=== PATIENT | female | born 1975 | race Caucasian/White ===

== ENCOUNTER → 2016-11-17 | Outpatient (CLI) | payer OTHER ==
[2016-11-17 17:15] VITALS: BP 147/101; PULSE 103; RESP 16; TEMP 98; BMI 46.5
--- NOTE | 2016-12-22 00:37 | P.PN ---
Progress Note - Text DATE OF CONSULTATION: 11/17/2016 CHIEF COMPLAINT: Initial bariatric assessment. HISTORY OF PRESENT ILLNESS: Marlene Barnhart is a 41-year-old female who reports having lap band placed 7 years ago in 2009. She reports never feeling full from her band. She is eating more foods. Also, she reports moderate emesis and vomiting. She has been able to tolerate junk foods only. Her last adjustment was over 3 years ago. Her highest weight was 246 pounds. Her ideal body weight for her 5 foot, 1 inch frame is 131 pounds. She is 115 pounds overweight. Body mass is 46.6. At present she is on thyroid medications. She also reports moderate pain and discomfort from her port site. She also reports heartburn indigestion. Now she presents for further evaluation and management. PAST MEDICAL HISTORY: 1. Morbid obesity. 2. Gastroesophageal reflux disease. 3. Obstructive sleep apnea. 4. Migraines. 5. History of melanoma. 6. Anxiety. 7. Depression. PAST SURGICAL HISTORY: 1. section. 2. Skin biopsy. 3. Lap band placement. 4. Nasal surgery. 5. Sinus surgery. MEDICATIONS: 1. Synthroid. 2. Vitamin D. 3. Sudafed. 4. Omeprazole. 5. [place]. 6. Flonase nasal spray. ALLERGIES: 1. MOLD. 2. PENICILLIN. 3. COMPAZINE. SOCIAL HISTORY: Former tobacco user. Reports intermittent alcohol use. FAMILY HISTORY: Pertinent for DVTs. Also pertinent for morbid obesity. REVIEW OF SYSTEMS: CONSTITUTIONAL: [place] body weight of 131 pounds. Highest weight of 246 pounds. Body mass index of 46.5. HEENT: Denies any troubles with vision, hearing. Denies dysphagia. ENDOCRINE: History of thyroid disorder. No known history of diabetes type 2. GASTROINTESTINAL: Has severe gastroesophageal reflux disease. Denies any chronic diarrhea. RESPIRATORY: History of obstructive sleep apnea. No recent pneumonias. CARDIOVASCULAR: No reports of chest pain or heart attack. MUSCULOSKELETAL: Reports intermittent joint pain. NEUROLOGICAL: There are no reports of stroke or seizure disorder. PSYCH: History of depression. No recent suicidal ideation. HEMATOLOGIC: No reports of easy bruising or bleeding. Denies any DVTs. PHYSICAL EXAM: VITAL SIGNS: 98.0, 103, 16, 147/101, 5 feet 1 inch, 246 pounds. Body mass 46.5. GENERAL: Well-developed female in no acute distress. HEENT: No sclerae icterus. Extraocular movements grossly intact. Moist buccal mucosa. NECK: Supple without lymphadenopathy. CHEST: Nonlabored respirations. Equal bilateral excursions. CARDIOVASCULAR: Regular rate and rhythm. ABDOMEN: Obese, soft, nondistended. Mild tenderness over port site, the left upper quadrant. Pannus extends over pubis by over 4 to 5 cm. MUSCULOSKELETAL: No clubbing, cyanosis, or edema. No focal or lateralizing signs. CARDIOVASCULAR: Tachycardic. Pulses 2+ distally well perfused. LABS: Pending at this time. ASSESSMENT: 1. Morbid obesity due to excess calories. 2. Body mass index 46.5. 3. History of adjustable gastric band. 4. Complications from adjustable gastric band. 5. Intractable nausea and vomiting. 6. Hypothyroidism. 7. Anxiety. 8. Depression. 9. Obstructive sleep apnea. 10. Gastroesophageal reflux disease PLAN: 1. At minimum recommend upper endoscopy, as she reports gastroesophageal reflux disease including intractable nausea and vomiting which may be related for questionable band slippage. 2. As she has troubles with her band and will also potentially need evaluation with an upper GI barium study. 3. May also benefit from removal of band; however, this is pending completion of her upper endoscopy. 4. May also benefit from evaluation with bariatric dietitian regarding lap band diet. 5. Recommend bariatric metabolic panel. Thank you for this kind consultation.
== END | disposition home or self-care (01) ==
LOC: BARWHC3 15:42
PROVIDERS: ATTEND Surgery Plastic and Reconstructive Surgery
DX: Z01.818 Encounter for other preprocedural examination (principal); E66.01 Morbid (severe) obesity due to excess calories; E89.1 Postprocedural hypoinsulinemia; D50.8 Other iron deficiency anemias; Z68.39 Body mass index [BMI] 39.0-39.9, adult; G47.30 Sleep apnea, unspecified
CPT/HCPCS: 99211

== ENCOUNTER 2016-12-17 07:01 | Day surgery (SDC) | payer OTHER ==
[2016-12-13 14:44] VITALS: BMI 45.3
--- NOTE | 2016-12-17 01:12 | P.GSHP ---
History of Present Illness H&P Date: 12/17/16 CHIEF COMPLAINT: GERD HISTORY OF PRESENT ILLNESS: The patient is a 41-year-old female who presents reports gastroesophageal reflux disease. Upper endoscopy was offered for further evaluation and management. PAST MEDICAL HISTORY: Please see list. PAST SURGICAL HISTORY: Please see list. MEDICATIONS: Please see list. ALLERGIES: Please see list. SOCIAL HISTORY: No illicit drug use FAMILY HISTORY: No reports of Crohn disease or ulcerative colitis. REVIEW OF ORGAN SYSTEMS: CONSTITUTIONAL: No reports of fevers or chills. GI: Denies any blood in stools or constipation. PHYSICAL EXAM: VITAL SIGNS: Stable GENERAL: Well-developed and pleasant in no acute distress. HEENT: No scleral icterus. Extraocular movements grossly intact. Moist buccal mucosa. NECK: Supple without lymphadenopathy. CHEST: Unlabored respirations. Equal bilateral excursions. CARDIOVASCULAR: Regular rate and rhythm. Distal 2+ pulses. ABDOMEN: Soft, nondistended. MUSCULOSKELETAL: No clubbing, cyanosis, or edema. ASSESSMENT: 1. Gastroesophageal reflux disease PLAN: 1. Recommend proceeding with an upper endoscopy Past Medical History Past Medical History: Asthma, Cancer, GERD/Reflux, Sleep Apnea/CPAP/BIPAP, Thyroid Disorder Additional Past Medical History / Comment(s): MIGRAINE HEADACHES, MELENOMA, hiatal hernia, hx ezcema, History of Any Multi-Drug Resistant Organisms: None Reported Past Surgical History: Bariatric Surgery, Section Additional Past Surgical History / Comment(s): LAP BAND, NASAL / SINUS SURGERY, Past Anesthesia/Blood Transfusion Reactions: Motion Sickness Past Psychological History: Anxiety, Depression Smoking Status: Former smoker Past Alcohol Use History: Rare Additional Past Alcohol Use History / Comment(s): QUIT SMOKING 2001 ,STARTED AT AGE 16- 1PPD Past Drug Use History: None Reported - Past Family History Father Family Medical History: Deep Vein Thrombosis (DVT) Medications and Allergies Home Medications Medication Instructions Recorded Confirmed Type Cholecalciferol (Vitamin D3) 50,000 unit PO WE 10/01/15 12/13/16 History [Vitamin D3] Levothyroxine Sodium [Synthroid] 137 mcg PO DAILY 10/01/15 12/13/16 History Fluticasone Nasal [place] [Flonase 2 spr EA NOSTRIL HS 12/13/16 12/13/16 History Nasal [place]] [place] Carbonate 300 mg PO HS 12/13/16 12/13/16 History Sudafed(Dose Unknown) 2 tab PO DAILY 12/13/16 12/13/16 History Allergies Allergy/AdvReac Type Severity Reaction Status Date / Time mold Allergy allergy Verified 12/13/16 14:31 testing Penicillins Allergy Rash/Hives Verified 12/13/16 14:31 prochlorperazine Allergy paranoid Verified 12/13/16 14:31 [From Compazine]
[~2016-12-17 07:01] MED LIST: LACTATED RINGERS 1,000 ML IV SCH; LIDOCAINE 1% 20 ML VIAL (10MG/ML) FOR IV START INTRADERMA PRN
[2016-12-17 07:19] VITALS: TEMP 97.3
[2016-12-17] MEDS ORDERED: PROPOFOL 10 MG/ML 20 ML VIAL IV ONE (07:31)
[2016-12-17] MEDS ORDERED: GLYCOPYRROLATE 0.2 MG/ML 2 ML VIAL ONE (07:31)
[2016-12-17] MEDS ORDERED: IV FLUID CONTINUATION 1,000 ML IV ONE (07:35)
[2016-12-17 07:55] VITALS: RESP 16
--- NOTE | 2016-12-17 07:56 | P.PCN ---
Date of Procedure: 12/17/16 Description of Procedure: PREOPERATIVE DIAGNOSIS: Gastroesophageal reflux disease. History of adjustable gastric band. POSTOPERATIVE DIAGNOSIS: Gastroesophageal reflux disease. History of adjustable gastric band. Diaphragmatic hiatal hernia. Gastritis, superficial chronic OPERATION: Esophagogastroduodenoscopy with biopsies along antrum. SURGEON: Lois Salcedo MD ANESTHESIA: MAC. INDICATIONS: The patient is a 41-year-old female who presents with a history of reflux disease. Benefits and risks of the procedure were described. Informed consent was obtained. DESCRIPTION: The patient was brought into the endoscopy suite and laid in the left lateral decubitus position. An Olympus gastroscope was passed along the posterior oropharynx down to the distal esophagus where the squamocolumnar junction was encountered at 36 cm from the incisors. The stomach was entered and minimal bile reflux was found. Additional findings are listed below. Biopsies with cold forceps were obtained of the antrum. The first through third portion of the duodenum was examined and unremarkable. Retroflexion of the scope confirmed Hill grade II lower esophageal valve. The squamocolumnar junction demostrated LA grade B erosive esophagitis. The stomach was desufflated. The patient tolerated the procedure well. FINDINGS: Squamocolumnar junction 35 cm from the incisors. Diaphragmatic hiatus at 38 cm from the incisors. Hiatal hernia, 3 cm. No band erosion noted. Superficial chronic gastritis along the antrum. Hill grade II lower esophageal valve. LA grade B erosive esophagitis. No active duodenitis. RECOMMENDATIONS: Start medical therapy. Further recommendations pending results of pathology report. Upper endoscopy as needed. Plan - Discharge Summary New Discharge Prescriptions: Omeprazole 40 mg PO DAILY #90 capsule.dr Discharge Medication List Cholecalciferol (Vitamin D3) [Vitamin D3] 50,000 unit PO WE 10/01/15 [History] Levothyroxine Sodium [Synthroid] 137 mcg PO DAILY 10/01/15 [History] Fluticasone Nasal [place] [Flonase Nasal [place]] 2 spr EA NOSTRIL HS 12/13/16 [ History] [place] Carbonate 300 mg PO HS 12/13/16 [History] Sudafed(Dose Unknown) 2 tab PO DAILY 12/13/16 [History] Omeprazole 40 mg PO DAILY #90 capsule. 12/17/16 [Rx] Follow up Appointment(s)/Referral(s): Lois Salcedo MD [STAFF PHYSICIAN] - 12/23/16 (Bariatric center) Patient Instructions/Handouts: Gastroesophageal Reflux Disease (DC), Hiatal Hernia (DC) Activity/Diet/Wound Care/Special Instructions: New medication at pharmacy Discharge Disposition: HOME SELF-CARE
[2016-12-17 08:08] VITALS: BP 105/74; PULSE 78
== END 2016-12-17 08:42 | disposition home or self-care (01) ==
LOC: ORWHC2ENDO 07:01
PROVIDERS: ATTEND Surgery Plastic and Reconstructive Surgery
DX: K29.30 Chronic superficial gastritis without bleeding (principal); K22.10 Ulcer of esophagus without bleeding; K44.9 Diaphragmatic hernia without obstruction or gangrene; K21.9 Gastro-esophageal reflux disease without esophagitis; Z98.84 Bariatric surgery status; Z87.891 Personal history of nicotine dependence; F41.9 Anxiety disorder, unspecified; F32.9 Major depressive disorder, single episode, unspecified; Z79.899 Other long term (current) drug therapy
CPT/HCPCS: 81025; 88305; 88342; 43239; J2704

== ENCOUNTER → 2016-12-23 | Outpatient (CLI) | payer OTHER ==
[2016-12-23 11:28] VITALS: RESP 16; TEMP 99.4; BMI 46.1
--- NOTE | 2017-01-28 22:21 | P.PN ---
Progress Note - Text DATE OF SERVICE: 12/23/2016 CHIEF COMPLAINT: Bariatric assessment. HISTORY OF PRESENT ILLNESS: Marlene Barnhart is a 41-year-old female with previous history of adjustable gastric band placed in 2009. She reports gastroesophageal reflux disease with her band. She had completed an upper endoscopy in the interim. At her height of 5 feet 1 inches her ideal body weight is 131 pounds. Her highest weight is 246 pounds. Today she comes in weighing 244 pounds. She has lost approximately 2 pounds since her last visit a month ago. Body mass index now reduced from 46.6 down to 46.2. PAST MEDICAL HISTORY: 1. Morbid obesity. 2. Gastroesophageal reflux disease. 3. Obstructive sleep apnea. 4. Migraines. 5. History of melanoma. 6. Anxiety. 7. Depression. PAST SURGICAL HISTORY: 1. section. 2. Skin biopsy. 3. Lap band placement. 4. Nasal surgery. 5. Sinus surgery. MEDICATIONS: 1. Synthroid. 2. Vitamin D. 3. Sudafed. 4. Omeprazole. 5. [place]. 6. Flonase nasal spray. ALLERGIES: 1. MOLD. 2. PENICILLIN. 3. COMPAZINE. SOCIAL HISTORY: Former tobacco user. Reports intermittent alcohol use. FAMILY HISTORY: Pertinent for DVTs. Also pertinent for morbid obesity. REVIEW OF SYSTEMS: CONSTITUTIONAL: At her height of 5 feet 1 inches her ideal body weight is 131 pounds. Her highest weight is 246 pounds. Today she comes in weighing 244 pounds. She has lost approximately 2 pounds since her last visit a month ago. Body mass index now reduced from 46.6 down to 46.2. HEENT: Denies any troubles with vision, hearing. Denies dysphagia. ENDOCRINE: History of thyroid disorder. No known history of diabetes type 2. GASTROINTESTINAL: Has severe gastroesophageal reflux disease. Denies any chronic diarrhea. RESPIRATORY: History of obstructive sleep apnea. No recent pneumonias. CARDIOVASCULAR: No reports of chest pain or heart attack. MUSCULOSKELETAL: Reports intermittent joint pain. NEUROLOGICAL: There are no reports of stroke or seizure disorder. PSYCH: History of depression. No recent suicidal ideation. HEMATOLOGIC: No reports of easy bruising or bleeding. Denies any DVTs. PHYSICAL EXAM: VITAL SIGNS: 99.4, 16, 82, 142/86, 5 feet 1 inch, 244 pounds. Body mass index 46.2. ABDOMEN: Soft, nontender, nondistended. Palpable lap band port. GENERAL: Well-developed female in no acute distress. HEENT: No sclerae icterus. Extraocular movements grossly intact. Moist buccal mucosa. NECK: Supple without lymphadenopathy. CHEST: Nonlabored respirations. Equal bilateral excursions. CARDIOVASCULAR: Regular rate and rhythm. MUSCULOSKELETAL: No clubbing, cyanosis, or edema. No focal or lateralizing signs. CARDIOVASCULAR: Regular rate and regular rhythm. Pulses 2+ distally well perfused. STUDIES: Upper endoscopy completed, demonstrating diaphragmatic hiatal hernia. Superficial chronic gastritis was also identified. Grade 2 lower esophageal valve was identified. 3 cm diaphragmatic hiatal hernia confirmed. PATHOLOGY: Pathology was reviewed, consistent with chronic gastritis. No evidence of H. pylori gastritis. LABS: Hemoglobin was normal at 13.8. Hemoglobin A1c is normal at 5.3%. Percent iron saturation is low at 15.1%. LDL was elevated at 100. HDL elevated at 63. Vitamin D was supratherapeutic at 133. ASSESSMENT: 1. Morbid obesity due to excess calories. 2. Body mass index 46.2. 3. History of adjustable gastric band. 4. Complications from adjustable gastric band. 5. Intractable nausea and vomiting. 6. Hypothyroidism. 7. Anxiety. 8. Depression. 9. Obstructive sleep apnea. 10. Gastroesophageal reflux disease 11. Diaphragmatic hiatal hernia. 12. Vitamin D excess. PLAN: 1. With her hiatal hernia and her severe gastroesophageal reflux disease alternatives such as removing fluid out of her band was discussed. Otherwise, she reports constant troubles with her band and is seeking complete removal of her band. 2. She has vitamin D excess whereby additional sources and supplemental Vitamin D should be discontinued. 3. Prescription for Omeprazole for reflux disease was described. 4. Alternatives for procedures between sleeve and Peng-en-Y gastric bypass were described. For her reflux, she is looking into a Peng-en-Y gastric bypass. 5. I have asked her to notify us regarding symptom improvement as all fluid is now removed from her band. PROCEDURE PERFORMED: Adjustment of gastric band. DESCRIPTION: Patient was laid supine. After verbal consent had been obtained, the skin was cleansed with alcohol swab. The skin was localized with 1 mL of 1% lidocaine. The port was palpated in the left upper quadrant without active erythema. Using a 22-gauge Ann needle, the port was accessed. A total with 5 mL of fluid was found and all fluid was removed from her band. She was able to tolerate drinking water without obstructive symptoms.
== END | disposition home or self-care (01) ==
LOC: BARWHC3 11:07
PROVIDERS: ATTEND Surgery Plastic and Reconstructive Surgery
DX: Z48.815 Encounter for surgical aftercare following surgery on the digestive system (principal); E66.01 Morbid (severe) obesity due to excess calories; Z68.42 Body mass index [BMI] 45.0-49.9, adult; Z98.84 Bariatric surgery status; K95.09 Other complications of gastric band procedure; K44.9 Diaphragmatic hernia without obstruction or gangrene; K21.9 Gastro-esophageal reflux disease without esophagitis; E67.3 Hypervitaminosis D
CPT/HCPCS: 99211

== ENCOUNTER → 2021-08-27 | Outpatient (CLI) | payer OTHER ==
[2021-08-27 08:25] LABS: Partial Thromboplastin Time 22.3 sec (22.0-30.0); Prothrombin Time 10.3 sec (9.0-12.0)
[2021-08-27 14:09] LABS: HCT 29.8 % (37.2-46.3); HGB 8.2 g/dL (12.0-15.0); MCH 21.4 pg (27.0-32.0); MCHC 27.5 g/dL (32.0-37.0); MCV 77.6 fL (80.0-97.0); Mean Platelet Volume 10.6 fL (9.5-12.2); Platelet Count 387 X 10*3/uL (140-440); RBC 3.84 X 10*6/uL (4.10-5.20); RDW 18.2 % (11.5-14.5); WBC 5.89 X 10*3/uL (4.50-10.00)
[2021-08-27 16:40] LABS: % Iron Saturation 4.32 (12.00-45.00); ALT 24 U/L (8-44); AST 24 U/L (13-35); African American GFR (CKD) 101.8 (60.0-200.0); Albumin 4.3 g/dL (3.8-4.9); Albumin/Globulin Ratio 1.79 (1.60-3.17); Alkaline Phosphatase 99 U/L (41-126); BUN/Creat Ratio 9.25 Ratio (12.00-20.00); Blood Urea Nitrogen 7.4 mg/dL (9.0-27.0); Calcium 9.1 mg/dL (8.7-10.3); Carbon Dioxide 23.5 mmol/L (20.0-27.5); Chloride 106 mmol/L (96-109); Chol/HDL Ratio 3.23 Ratio; Ferritin 4.1 ng/mL (10.0-291.0); Globulin 2.4 g/dL (1.6-3.3); Glucose 105 mg/dL (70-110); Iron 23 ug/dL (50-170); LDL Cholesterol,Calculated 103.2 mg/dL (0.0-131.0); Magnesium 2.2 mg/dL (1.5-2.4); Non-African American GFR(CKD) 87.8 (60.0-200.0); Phosphorus 2.8 mg/dL (2.4-5.1); Potassium 4.4 mmol/L (3.5-5.5); Prealbumin 17.4 mg/dL (18.0-42.0); Sodium 141 mmol/L (135-145); Total Iron Binding Capacity 531 ug/dL (228-460); Total Protein 6.7 g/dL (6.2-8.2)
[2021-08-28 12:18] LABS: Zinc, Serum 80 ug/dL (60-130)
== END | disposition home or self-care (01) ==
LOC: LABWHC1 07:07
PROVIDERS: ATTEND Surgery Plastic and Reconstructive Surgery
DX: E89.1 Postprocedural hypoinsulinemia (principal); D50.8 Other iron deficiency anemias; K90.89 Other intestinal malabsorption; E55.9 Vitamin D deficiency, unspecified; N19 Unspecified kidney failure; K74.1 Hepatic sclerosis; K50.90 Crohn's disease, unspecified, without complications; E66.9 Obesity, unspecified
CPT/HCPCS: 36415; 80053; 80061; 82306; 82525; 82607; 82728; 82746; 83036; 83540; 83550; 83735; 83970; 84100; 84134; 84255; 84425; 84443; 84590; 84630; 85027; 85610; 85730

== ENCOUNTER → 2021-08-27 | Outpatient (CLI) | payer OTHER ==
--- NOTE | 2021-08-27 12:30 | FL ---
EXAMINATION TYPE: FL barium swallow, single contrast DATE OF EXAM: 08/27/2021 CLINICAL INDICATION: 46-year-old female K44.9, hiatal hernia. History of lap band in 2011. Intermitte nt vomiting. COMPARISON: None Total Fluoroscopy Time: 1 minute 20 seconds 26 images obtained. FINDINGS: Single contrast technique was utilized with thin barium due to patient's previous bariatric surgery. Patient swallowed oral contrast without difficulty or delay. Normal course, caliber, and overall motility of the esophagus. Satisfactory passage of contrast from the esophagus into the stomach with lap band visualized in plac e. Attenuated stream of contrast across the lap band without obstruction. Hiatal hernia is not clearly identified. IMPRESSION: 1. Lap band in place. No evidence for prolapse or obstruction. 2. However, there is an attenuated stream of contrast across the lap band suggesting that the band is tight. 3. No hiatal hernia identified.
== END | disposition home or self-care (01) ==
LOC: RADUSWWP 07:32
PROVIDERS: ATTEND Surgery Plastic and Reconstructive Surgery
DX: K44.9 Diaphragmatic hernia without obstruction or gangrene (principal)
CPT/HCPCS: 74220

== ENCOUNTER 2021-09-09 08:50 | Day surgery (SDC) | payer OTHER ==
[2021-09-03 15:00] VITALS: BMI 46.4
[~2021-09-09 08:50] MED LIST changes: +LIDOCAINE 1% (10MG/ML) FOR IV START INTRADERMA PRN; -LIDOCAINE 1% 20 ML VIAL (10MG/ML) FOR IV START INTRADERMA PRN
[2021-09-09 09:28] VITALS: TEMP 98.2
[2021-09-09] MEDS ORDERED: LIDOCAINE 1% INJ 10MG/ML (20 ML MDV) ONE (09:43)
[2021-09-09] MEDS ORDERED: PROPOFOL 10 MG/ML 20 ML VIAL IV ONE (09:43)
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
--- NOTE | 2021-09-09 09:57 | P.PCN ---
Date of Procedure: 09/09/21 Description of Procedure: PREOPERATIVE DIAGNOSIS: Gastroesophageal reflux disease. Morbid obesity. POSTOPERATIVE DIAGNOSIS: Morbid obesity. Gastritis. Gastroesophageal reflux disease. Diaphragmatic hiatal hernia OPERATION: Esophagogastroduodenoscopy with biopsies along antrum. SURGEON: Lois Salcedo MD ANESTHESIA: MAC. INDICATIONS: The patient is a 46-year-old female who presents with a history of reflux disease. Benefits and risks of the procedure were described. Informed consent was obtained. DESCRIPTION: The patient was brought into the endoscopy suite and laid in the left lateral decubitus position. An Olympus gastroscope was passed along the posterior oropharynx down to the distal esophagus where the squamocolumnar junction was encountered at 38 cm from the incisors. a large redundant posterior oropharynx and uvula.The stomach was entered and no bile reflux was found. Additional findings are listed below. Biopsies with cold forceps were obtained of the antrum. The first through third portion of the duodenum was examined and unremarkable. Retroflexion of the scope confirmed Hill grade 2 lower esophageal valve. The squamocolumnar junction demonstrated LA grade B erosive esophagitis. The stomach was desufflated. The patient tolerated the procedure well. FINDINGS: Squamocolumnar junction 38 cm from the incisors. Diaphragmatic hiatus at 39 cm. Hiatal hernia, 1 cm [place] grade 2 lower esophageal valve. LA grade B erosive esophagitis. No active duodenitis. Chronic gastritis Large removal of the redundant posterior oropharynx for sleep apnea RECOMMENDATIONS: Upper endoscopy as needed. Recommend assessment for sleep apnea Plan - Discharge Summary Discharge Rx Participant: No New Discharge Prescriptions: Continue Cholecalciferol (Vitamin D3) [Vitamin D3] 50,000 unit PO TU Levothyroxine Sodium [Synthroid] 137 mcg PO DAILY Sudafed(Dose Unknown) 2 tab PO DAILY PRN PRN Reason: Cold Symptoms Omeprazole 40 mg PO DAILY #90 capsule. QUEtiapine [SEROquel] 100 mg PO HS Discharge Medication List Cholecalciferol (Vitamin D3) [Vitamin D3] 50,000 unit PO TU 10/01/15 [History] Levothyroxine Sodium [Synthroid] 137 mcg PO DAILY 10/01/15 [History] Sudafed(Dose Unknown) 2 tab PO DAILY PRN 12/13/16 [History] Omeprazole 40 mg PO DAILY #90 capsule. 04/07/17 [Rx] QUEtiapine [SEROquel] 100 mg PO HS 09/03/21 [History] Follow up Appointment(s)/Referral(s): [facility],[place] [NON-STAFF] - 09/16/21 Patient Instructions/Handouts: Hiatal Hernia (DC), *Surgery [facility] - (Anesthesia) Endoscopy Discharge Instructions, Upper Endoscopy (DC) Discharge Disposition: HOME SELF-CARE
[2021-09-09 10:02] VITALS: RESP 16
[2021-09-09 10:19] VITALS: BP 126/67; PULSE 90
== END 2021-09-09 10:42 | disposition home or self-care (01) ==
LOC: ORWHC2ENDO 08:50
PROVIDERS: ATTEND Surgery Plastic and Reconstructive Surgery
DX: K29.50 Unspecified chronic gastritis without bleeding (principal); K21.9 Gastro-esophageal reflux disease without esophagitis; K44.9 Diaphragmatic hernia without obstruction or gangrene; E66.01 Morbid (severe) obesity due to excess calories; Z68.42 Body mass index [BMI] 45.0-49.9, adult; K22.10 Ulcer of esophagus without bleeding; J39.2 Other diseases of pharynx; E03.9 Hypothyroidism, unspecified; G47.33 Obstructive sleep apnea (adult) (pediatric); Z85.820 Personal history of malignant melanoma of skin; Z98.891 History of uterine scar from previous surgery; Z98.84 Bariatric surgery status; Z98.890 Other specified postprocedural states; Z18.9 Retained foreign body fragments, unspecified material; F41.9 Anxiety disorder, unspecified; G62.9 Polyneuropathy, unspecified; F32.A Depression, unspecified; Z87.891 Personal history of nicotine dependence; Z82.49 Family history of ischemic heart disease and other diseases of the circulatory system; Z79.890 Hormone replacement therapy; Z79.899 Other long term (current) drug therapy; Z88.0 Allergy status to penicillin; Z88.8 Allergy status to other drugs, medicaments and biological substances; Z91.048 Other nonmedicinal substance allergy status
CPT/HCPCS: 81025; 88305; 43239; J2001; J2704

== ENCOUNTER → 2021-11-18 | Outpatient (CLI) | payer OTHER ==
--- NOTE | 2021-11-18 17:21 | CONS ---
CONSULTATION DATE OF SERVICE: 11/18/2021 This 46-year-old lady has been evaluated [facility] for possible obstructive sleep apnea-hypopnea syndrome. HISTORY OF PRESENT ILLNESS/SLEEP-WAKE EVALUATION: The patient was diagnosed with severe obstructive sleep apnea more than 10 years ago in another institution, was ordered CPAP therapy at that time, but she was not able to use treatment right after starting CPAP therapy. At present, her sleep schedule on weekdays is from 10 or 11 p.m. to 7 a.m. and on weekends from midnight until 7 a.m. No problems with falling asleep, although she has a TV set in the bedroom. She usually sleeps on the back and side positions. She wakes up from sleep one time with nocturia. She has extremely loud snoring and witnessed episodes of stopped breathing during sleep. During the day, she may have episodes of depression and anxiety. [place] Sleepiness Scale is 4. Usually she does not take naps. No history of hypnagogic hallucinations, sleep paralysis or cataplexy. PAST MEDICAL HISTORY: Positive for asthma, sinusitis, depression, melanoma of left leg, acid reflux, hypothyroidism, iron deficiency anemia, perimenopause. PAST SURGICAL HISTORY: x2, rhinoplasty, lap band surgery, radiation therapy for hyperfunctional thyroid in the past. MEDICATIONS: 1. Levothyroxine 137 mcg once a day. 2. Seroquel 100 mg once a day. 3. Omeprazole 40 mg once a day. 4. Vitamins. SOCIAL HISTORY: Positive history of smoking for about 10 pack/years; quit smoking. Alcohol consumption occasional. REVIEW OF SYSTEMS: Snoring, awakenings from sleep with nocturia. No fevers. No double vision. No recent chest pain. No shortness of breath. No abdominal pain. No bleeding episodes. No blood in the urine. No seizure episodes. PHYSICAL EXAMINATION: GENERAL: Pleasant lady without distress. VITAL SIGNS: BP 127/86, HR 85, RR 16, height 5 feet 1-1/4 inches, weight 251.6 pounds, body mass index 47.1, temperature 97.4, oxygen saturation at room air 93%. HEENT: PERRLA, EOMI, evaluation of oropharynx showed tongue protrudes midline. Extremely low position of soft palate; Mallampati IV. NECK: Supple, no JVD. Thyroid is not palpable. Neck is wide; 16-1/3 inches in circumference. LUNGS: Clear to percussion and to auscultation. Good air exchange. No wheezing or rhonchi. HEART: S1, S2 regular. No murmurs, gallops, or rubs. ABDOMEN: Obese. EXTREMITIES: No clubbing or cyanosis. SEISMOGRAPH OBSERVER: Awake, alert, and oriented X3. Cranial nerves 2 to 7 intact. There is no fasciculation or atrophy. noted. No focal deficits observed. IMPRESSION: 1. Loud snoring, witnessed episodes of stopped breathing during sleep, extremely low position of soft palate, Mallampati IV, wide neck, 16-1/3 inches in circumference, history of obstructive sleep apnea in the past; obstructive sleep apnea-hypopnea syndrome. 2. Obesity; body mass index 47.1. 3. History of asthma. 4. History of sinus problems. 5. History of depression. 6. Status post surgery for nasal septum deviation. 7. History of left leg melanoma, treated surgically. 8. Acid reflux. 9. Hypothyroidism, status post radioactive iodine treatment for hyperfunctional thyroid in the past. 10.Iron deficiency anemia secondary to uterine bleeding. 11.Status post lap band surgery. 12.Status post x2. 13.Perimenopausal. PLAN: 1. Polysomnography for evaluation of patient's breathing during sleep. 2. CPAP/BiPAP titration if sleep study confirms obstructive sleep apnea-hypopnea syndrome. 3. Preferable position during sleep on the side. 4. No driving if patient feels any sleepiness. 5. I will see patient for follow up visit to explain results of testing and following plan. Thank you very much for referring this patient for consultation. Sincerely, Celso Rodriges MD, PhD, FAASM Diplomat of [place] [employer] Sleep Medicine Board of [place] [employer] Coordinator of [facility] [place] MMODL / IJN: [id number] /
== END | disposition home or self-care (01) ==
LOC: SLEEP 15:43
PROVIDERS: ATTEND Internal Medicine
DX: G47.33 Obstructive sleep apnea (adult) (pediatric) (principal); E66.9 Obesity, unspecified; K21.9 Gastro-esophageal reflux disease without esophagitis; E03.9 Hypothyroidism, unspecified; D50.9 Iron deficiency anemia, unspecified; Z68.42 Body mass index [BMI] 45.0-49.9, adult; Z87.09 Personal history of other diseases of the respiratory system; Z86.59 Personal history of other mental and behavioral disorders; Z98.890 Other specified postprocedural states; Z78.0 Asymptomatic menopausal state
CPT/HCPCS: 99211

== ENCOUNTER → 2022-06-24 | Day surgery (SDC) | payer OTHER ==
[~2022-06-24] MED LIST changes: +LACTATED RINGERS 1,000 ML IV ONE; -LIDOCAINE 1% (10MG/ML) FOR IV START INTRADERMA PRN; +LIDOCAINE 2% INJ 20 MG/ML (2 ML VIAL) ONE; +PROPOFOL 10 MG/ML 20 ML VIAL IV ONE
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
[2022-06-24 09:13] VITALS: TEMP 97.3
--- NOTE | 2022-06-24 10:09 | P.PCN ---
Date of Procedure: 06/24/22 Description of Procedure: PREOPERATIVE DIAGNOSIS: Personal history of colon polyps Family history malignant colon polyps Colonoscopy screening POSTOPERATIVE DIAGNOSIS: Tubular adenoma splenic flexure Tubular adenoma transverse colon Tubular adenoma descending colon Tubular adenoma sigmoid colon Sigmoid diverticulosis Internal hemorrhoids, grade 2 OPERATION: Colonoscopy to the ileocecal valve and appendiceal orifice, cecum Colonoscopy with hot snare polypectomy Colonoscopy with cold forceps biopsy SURGEON: Lois Salcedo MD. ANESTHESIA: MAC. INDICATIONS: The patient is an 47-year-old male who presents family history of malignant colon polyps and personal history of colon polyps. Benefits and risks were described and informed consent was obtained. DESCRIPTION OF PROCEDURE: The patient had undergone Sutab prep. The patient had been brought into the operating room and laid in the left lateral decubitus position. After adequate intravenous sedation, the rectum was examined with 2% lidocaine jelly. External hemorrhoids were encountered. The rectal tone was within normal limits. No lesions were palpated in the rectal vault. An Olympus colonoscope was advanced until the cecum, ileocecal valve and appendiceal orifice were clearly viewed. The prep was excellent. Few sigmoid diverticulosis was encountered. Colonic polyps were found and removed. No evidence of focal colitis was found. Retroflexion of the scope demonstrated grade 3 internal hemorrhoids without active bleeding or inflammation. The colon was desufflated. The patient had tolerated the procedure well. Withdrawal time was over 6 minutes. FINDINGS: Aronchick preparation quality scale 1 (1-5) Internal hemorrhoids, grade 3 External hemorrhoids, grade 3 No arteriovenous malformations. Sigmoid diverticulosis Removal of 5 polyps: - Snare polypectomy 20 cm from the anal verge, 5 mm tubulovillous adenoma polyp, sigmoid - Cold forceps biopsy at 30 cm from the anal verge 2, 4 mm to 6 mm polyp, descending colon - Cold forceps biopsy at splenic flexure, 5 mm polyp - Cold forceps biopsy at 60 cm, 4 mm polyp transverse colon No focal colitis. RECOMMENDATIONS: Repeat colonoscopy in 3 years, 2024 Plan - Discharge Summary Discharge Rx Participant: No New Discharge Prescriptions: Continue Levothyroxine Sodium [Synthroid] 137 mcg PO DAILY Ergocalciferol [Vitamin D2 (1250 Mcg = 44236 Iu)] 1,250 mcg PO WEEKLY Omeprazole 40 mg PO HS busPIRone HCL [Buspar] 30 mg PO HS QUEtiapine [SEROquel] 200 mg PO HS Albuterol Sulfate [Ventolin HFA] 1 - 2 puff INHALATION Q6H PRN PRN Reason: Cough Multivitamins, Thera [Multivitamin (formulary)] 1 tab PO DAILY Discharge Medication List Levothyroxine Sodium [Synthroid] 137 mcg PO DAILY 10/01/15 [History] QUEtiapine [SEROquel] 200 mg PO HS 09/03/21 [History] Albuterol Sulfate [Ventolin HFA] 1 - 2 puff INHALATION Q6H PRN 09/21/21 [History] Ergocalciferol [Vitamin D2 (1250 Mcg = 70378 Iu)] 1,250 mcg PO WEEKLY 10/13/21 [History] Multivitamins, Thera [Multivitamin (formulary)] 1 tab PO DAILY 10/13/21 [History] Omeprazole 40 mg PO HS 10/13/21 [History] busPIRone HCL [Buspar] 30 mg PO HS 06/22/22 [History] Follow up Appointment(s)/Referral(s): Lois Salcedo MD [STAFF PHYSICIAN] - As Needed Patient Instructions/Handouts: Diverticulosis Diet (GEN), Diverticulitis (IP), Colorectal Polyps (GEN) Activity/Diet/Wound Care/Special Instructions: Repeat colonoscopy 3 years, 2024 Discharge Disposition: HOME SELF-CARE
[2022-06-24 10:26] VITALS: BP 107/74; PULSE 83; RESP 18
== END | disposition home or self-care (01) ==
LOC: ORWHC2ENDO 08:50
PROVIDERS: ATTEND Surgery Plastic and Reconstructive Surgery
DX: Z12.11 Encounter for screening for malignant neoplasm of colon (principal); K63.5 Polyp of colon; K57.30 Diverticulosis of large intestine without perforation or abscess without bleeding; K64.1 Second degree hemorrhoids; E07.9 Disorder of thyroid, unspecified; K64.4 Residual hemorrhoidal skin tags; K21.9 Gastro-esophageal reflux disease without esophagitis; J45.909 Unspecified asthma, uncomplicated; G47.33 Obstructive sleep apnea (adult) (pediatric); Z80.0 Family history of malignant neoplasm of digestive organs; Z86.010 Personal history of colon polyps; Z98.84 Bariatric surgery status; Z98.891 History of uterine scar from previous surgery; Z87.891 Personal history of nicotine dependence; Z82.49 Family history of ischemic heart disease and other diseases of the circulatory system; Z79.51 Long term (current) use of inhaled steroids; Z79.899 Other long term (current) drug therapy; Z88.0 Allergy status to penicillin; Z88.8 Allergy status to other drugs, medicaments and biological substances; Z79.890 Hormone replacement therapy
CPT/HCPCS: 81025; 88305; 45380; 45385; J2704; J2001

== ENCOUNTER → 2023-08-31 | Outpatient (CLI) | payer OTHER ==
[2023-08-31 17:19] VITALS: BP 134/83; PULSE 81; RESP 16; TEMP 98.1; BMI 26.6
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
== END ==
LOC: BARWHC3 16:36
PROVIDERS: ATTEND Surgery Plastic and Reconstructive Surgery
DX: E66.01 Morbid (severe) obesity due to excess calories (principal); D50.9 Iron deficiency anemia, unspecified; E03.9 Hypothyroidism, unspecified; F41.9 Anxiety disorder, unspecified; F32.A Depression, unspecified; G47.33 Obstructive sleep apnea (adult) (pediatric); K21.9 Gastro-esophageal reflux disease without esophagitis; K44.9 Diaphragmatic hernia without obstruction or gangrene; E50.9 Vitamin A deficiency, unspecified; D52.9 Folate deficiency anemia, unspecified; E20.811 Secondary hypoparathyroidism in diseases classified elsewhere; E55.9 Vitamin D deficiency, unspecified; K80.20 Calculus of gallbladder without cholecystitis without obstruction; M79.3 Panniculitis, unspecified; Z68.42 Body mass index [BMI] 45.0-49.9, adult; Z98.84 Bariatric surgery status; Z98.890 Other specified postprocedural states; Z88.0 Allergy status to penicillin; Z91.09 Other allergy status, other than to drugs and biological substances; Z88.8 Allergy status to other drugs, medicaments and biological substances; Z79.890 Hormone replacement therapy; Z88.1 Allergy status to other antibiotic agents; Z87.891 Personal history of nicotine dependence
CPT/HCPCS: 99211

== ENCOUNTER → 2023-08-31 | Outpatient (CLI) | payer OTHER ==
[2023-08-31 17:42] LABS: Prothrombin Time 11.1 sec (10.0-12.5)
[2023-09-01 02:18] LABS: HCT 46.3 % (37.2-46.3); HGB 14.8 g/dL (12.0-15.0); MCH 30.1 pg (27.0-32.0); MCV 94.1 FL (80.0-97.0); NRBC Per 100 WBC 0 X 10*3/uL (0.00-0.01); Platelet Count 307 X 10*3/uL (140-440); RBC 4.92 X 10*6/uL (4.10-5.20); RDW 14.8 % (11.5-14.5); WBC 6.37 X 10*3/uL (4.50-10.00)
[2023-09-01 02:38] LABS: % Iron Saturation 14.69 (12.00-45.00); ALT 17 U/L (8-44); AST 21 U/L (13-35); Albumin 4.6 g/dL (3.8-4.9); Albumin/Globulin Ratio 1.77 Ratio (1.60-3.17); Alkaline Phosphatase 70 U/L (41-126); BUN/Creat Ratio 21.88 Ratio (12.00-20.00); Blood Urea Nitrogen 17.5 mg/dL (9.0-27.0); Calcium 9.8 mg/dL (8.7-10.3); Carbon Dioxide 26.6 mmol/L (21.6-31.8); Chloride 103 mmol/L (96-109); Chol/HDL Ratio 2.93 Ratio; Ferritin 11.8 ng/mL (10.0-291.0); Globulin 2.6 g/dL (1.6-3.3); Glucose 86 mg/dL (70-110); Iron 67 UG/DL (50-170); LDL Cholesterol,Calculated 108.4 mg/dL (0.0-131.0); Magnesium 2.1 mg/dL (1.5-2.4); Phosphorus 3.3 mg/dL (2.4-5.1); Potassium 3.9 mmol/L (3.5-5.5); Sodium 140 mmol/L (135-145); Total Bilirubin 0.4 mg/dL (0.3-1.2); Total Iron Binding Capacity 456 UG/DL (228-460); Total Protein 7.2 g/dL (6.2-8.2)
[2023-09-01 12:30] LABS: Zinc, Serum 86 ug/dL (60-130)
[2023-09-02 07:42] LABS: Vit B1(Thiamine) 81 ug/L (38-122)
== END | disposition home or self-care (01) ==
LOC: LABWHC1 16:15
PROVIDERS: ATTEND Surgery Plastic and Reconstructive Surgery
DX: E89.1 Postprocedural hypoinsulinemia (principal); E66.01 Morbid (severe) obesity due to excess calories; D50.9 Iron deficiency anemia, unspecified; K91.2 Postsurgical malabsorption, not elsewhere classified; E44.0 Moderate protein-calorie malnutrition; E44.1 Mild protein-calorie malnutrition; E45 Retarded development following protein-calorie malnutrition; E55.9 Vitamin D deficiency, unspecified; K74.1 Hepatic sclerosis; N19 Unspecified kidney failure; T56.894A Toxic effect of other metals, undetermined, initial encounter; K50.90 Crohn's disease, unspecified, without complications
CPT/HCPCS: 36415; 80053; 80061; 82306; 82525; 82607; 82728; 82746; 83036; 83540; 83550; 83735; 83970; 84100; 84255; 84425; 84443; 84590; 84630; 85027; 85610; 85730; 93005

== ENCOUNTER 2023-09-15 11:57 | Day surgery (SDC) | payer OTHER ==
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
[~2023-09-15 11:57] MED LIST changes: +ACETAMINOPHEN TAB 500 MG TAB PO PRN; +HEPARIN SODIUM,PORCINE 5,000 UNIT/ML 1 ML VIAL SQ PRN; +HYDROmorphone 0.5 MG/0.5 ML SYRINGE IVP PRN; -LACTATED RINGERS 1,000 ML IV ONE; -LIDOCAINE 2% INJ 20 MG/ML (2 ML VIAL) ONE; +MELOXICAM 7.5 MG TAB PO PRN; +MIDAZOLAM 2 MG/2 ML VIAL IV PRN; +ONDANSETRON 4 MG/2 ML VIAL IVP PRN; -PROPOFOL 10 MG/ML 20 ML VIAL IV ONE
[2023-09-15] MEDS ORDERED: MIDAZOLAM 2 MG/2 ML VIAL IVP ONE (12:36)
[2023-09-15] MEDS ORDERED: SUCCINYLCHOLINE CHLORIDE 200 MG/10 ML VIAL IV ONE (13:45)
[2023-09-15] MEDS ORDERED: KETOROLAC 15 MG/ML 1 ML VIAL ONE (13:45)
[2023-09-15] MEDS ORDERED: SODIUM CHLORIDE 0.9% (PF) 10 ML VIAL ONE (13:45)
[2023-09-15] MEDS ORDERED: DEXAMETHASONE SOD PHOSPHATE 4 MG/ML 1 ML VIAL ONE (13:45)
[2023-09-15] MEDS ORDERED: PHENYLEPHRINE-0.9% NACL SYG 1,000 MCG/10 ML SYRINGE ONE (13:45)
[2023-09-15] MEDS ORDERED: fentaNYL (PF) 50 MCG/ML 2 ML AMP ONE (13:45)
[2023-09-15] MEDS ORDERED: NEOSTIGMINE 1 MG/ML 10 ML VIAL ONE (13:45)
[2023-09-15] MEDS ORDERED: GLYCOPYRROLATE 0.2 MG/ML 2 ML VIAL ONE (13:45)
[2023-09-15] MEDS ORDERED: BUPIVACAIN-EPI 0.5%-1:200,000 30 ML VIAL ONE (13:45)
[2023-09-15] MEDS ORDERED: LIDOCAINE 1% INJ 10MG/ML (20 ML MDV) ONE (13:45)
[2023-09-15] MEDS ORDERED: PROPOFOL 10 MG/ML 20 ML VIAL IV ONE (13:45)
[2023-09-15] MEDS ORDERED: ROCURONIUM 10 MG/ML (5 ML VIAL) IV ONE (13:45)
[2023-09-15] MEDS ORDERED: LIDOCAINE 1%-EPI 1:100,000 50 ML VIAL SQ ONE (14:12)
--- NOTE | 2023-09-15 14:37 | P.ANPRN ---
Procedure Note - Anesthesia - Nerve Block Performed Bilateral Erector Spinae Single Time Out Performed: Yes (1242) Date of Procedure: 09/15/23 Location of Patient: PreOp Indication: Acute Post-Operative Pain, Dx/Pain Location (b/l abdomen) Sedation Type: Sedate with meaningful contact maintained Preparation: Sterile Prep Position: Prone Catheter: None Needle Types: Pajunk Needle Gauge: 21 Ultrasound used to visualize needle placement: Yes Ultrasound used to observe medication spread: Yes Injectate: 0.5% Ropivacaine (see comment for volume) (20 cc + 10 cc of NSaline+ 4mg of decadron on each side) Blood Aspirated: No Pain Paresthesia on Injection Noted: No Resistance on Injection: Normal Image Stored and Saved: Yes Events: Uneventful and Well Tolerated
[2023-09-15] MEDS ORDERED: LACTATED RINGERS 1,000 ML IV ONE ×2 (14:45→17:55)
[2023-09-15 15:46] VITALS: TEMP 97.4
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
[2023-09-15] MEDS ORDERED: CYCLOBENZAPRINE 10 MG TAB PO STA (16:50)
[2023-09-15 16:52] VITALS: RESP 16
[2023-09-15 17:56] VITALS: BP 105/64; PULSE 98
== END 2023-09-15 18:03 | disposition home or self-care (01) ==
LOC: OR 11:57
PROVIDERS: ATTEND Surgery Plastic and Reconstructive Surgery
DX: K43.0 Incisional hernia with obstruction, without gangrene (principal); G62.9 Polyneuropathy, unspecified; J44.89 Other specified chronic obstructive pulmonary disease; K21.9 Gastro-esophageal reflux disease without esophagitis; K66.0 Peritoneal adhesions (postprocedural) (postinfection); Z79.890 Hormone replacement therapy; Z85.820 Personal history of malignant melanoma of skin; Z85.828 Personal history of other malignant neoplasm of skin; Z87.891 Personal history of nicotine dependence; Z88.0 Allergy status to penicillin; Z88.8 Allergy status to other drugs, medicaments and biological substances; Z98.84 Bariatric surgery status
CPT/HCPCS: 49596; S2900; 64999; 81025

== ENCOUNTER → 2023-09-21 | Outpatient (CLI) | payer OTHER ==
--- NOTE | 2023-09-21 17:14 | P.BASOAP ---
Subjective Progress Note Date: 09/21/23 DATE OF SERVICE: 09/21/23 CHIEF COMPLAINT: Morbid obesity HISTORY OF PRESENT ILLNESS: Marlene Barnhart is a 48-year-old female who comes in with adjustable gastric band placed in 2009. She is 13 years out. She is status post ventral hernia repair 09/15/2023. She comes in with additional concerns of troubles with her adjustable gastric band and taken to removal. Additionally, she has symptomatic gallstones. She is 1 week postop. At her height of 5 feet 1.5 inches her ideal body weight is 131 pounds. Her highest weight is 257 pounds, body mass index 47.9. Today she comes in weighing 151 pounds from 143 pounds, 2 weeks ago. She has lost 106 pounds in 1 year. Percent excess lifetime weight loss 84%. PHYSICAL EXAM: VITAL SIGNS: Height 5 foot 1.5 inches, weight 151 pounds. BMI 28.1 Vital Signs Temp 98.4 F 09/21/23 16:49 Pulse 92 09/21/23 16:49 Resp BP 128/86 09/21/23 16:49 Pulse Ox FiO2 GENERAL: Well-developed in no acute distress. HEENT: No scleral icterus. Extraocular movements grossly intact. Hears conversational speech. No nasal drainage. NECK: Supple without lymphadenopathy. CHEST: Nonlabored respirations with equal bilateral excursions. CARDIOVASCULAR: Regular rate and regular rhythm. Distal 2+ pulses. ABDOMEN: No recurrent abdominal wall hernia. Incisions intact. MUSCULOSKELETAL: No clubbing, cyanosis. NEURO: No focal or lateralizing signs. Cranial nerves 2 through 12 grossly within normal limits. PSYCH: Appropriate affect. Alert and oriented to person, place and time. SKIN: Good skin turgor. Well perfused. ASSESSMENT: 1. Status post ventral hernia repair 2. Body mass index 47.9 to 28.1 3. History of adjustable gastric band. 4. Complications from adjustable gastric band. 5. Iron deficiency anemia 6. Hypothyroidism. 7. Anxiety. 8. Depression. 9. Obstructive sleep apnea. 10. Gastroesophageal reflux disease 11. Diaphragmatic hiatal hernia. 12. Vitamin A deficiency 13. Folate deficiency 14. Secondary hyperparathyroidism 15. Vitamin D deficiency 16. Incisional ventral hernia 17. Symptomatic gallstones 18. Panniculitis PLAN: 1. Recommend complete recovery from status post hernia repair. 2. In the interim, lifting restrictions 4 pounds for 4 weeks. 3. Recommend adjustable gastric band due to intolerance 4. Recommend cholecystectomy after complete recovery Objective - Vital Signs Vital signs: Vital Signs Temp 98.4 F 09/21/23 16:49 Pulse 92 09/21/23 16:49 Resp BP 128/86 09/21/23 16:49 Pulse Ox FiO2 Intake & Output 09/20/23 09/21/23 09/21/23 18:59 06:59 18:59 Weight 68.492 kg Assessment/Plan Plan: Date: 09/21/23 Initial Weight: 111.612 kg Initial BMI: 45.7 Current Weight: 68.492 kg Current BMI: 28.0 Type of Surgery: Total Volume in Band: 0 Previous Volume: Volume Removed: Volume Added: Band Size:
[2023-09-21 17:18] VITALS: BP 128/86; PULSE 92; TEMP 98.4; BMI 28.0
== END ==
LOC: BARWHC3 16:38
PROVIDERS: ATTEND Surgery Plastic and Reconstructive Surgery
DX: K21.9 Gastro-esophageal reflux disease without esophagitis (principal); E66.01 Morbid (severe) obesity due to excess calories; D50.9 Iron deficiency anemia, unspecified; E03.9 Hypothyroidism, unspecified; F41.9 Anxiety disorder, unspecified; F32.A Depression, unspecified; G47.33 Obstructive sleep apnea (adult) (pediatric); K44.9 Diaphragmatic hernia without obstruction or gangrene; E50.9 Vitamin A deficiency, unspecified; D52.9 Folate deficiency anemia, unspecified; E21.1 Secondary hyperparathyroidism, not elsewhere classified; E55.9 Vitamin D deficiency, unspecified; K43.2 Incisional hernia without obstruction or gangrene; K95.09 Other complications of gastric band procedure; K80.20 Calculus of gallbladder without cholecystitis without obstruction; M79.3 Panniculitis, unspecified; Z68.28 Body mass index [BMI] 28.0-28.9, adult; Z46.51 Encounter for fitting and adjustment of gastric lap band; Z91.09 Other allergy status, other than to drugs and biological substances; Z88.0 Allergy status to penicillin; Z88.8 Allergy status to other drugs, medicaments and biological substances; Z79.890 Hormone replacement therapy; Z87.891 Personal history of nicotine dependence
CPT/HCPCS: 99211

== ENCOUNTER → 2023-11-09 | Outpatient (CLI) | payer OTHER ==
[2023-11-10 03:01] LABS: Basophils # (A) 0.07 X 10*3/uL (0.00-0.10); Basophils % (A) 1.1 %; Eosinophils # (A) 0.08 X 10*3/uL (0.04-0.35); Eosinophils % (A) 1.3 %; HCT 42.6 % (37.2-46.3); HGB 13.7 g/dL (12.0-15.0); MCH 29.8 pg (27.0-32.0); MCHC 32.2 g/dL (32.0-37.0); MCV 92.8 FL (80.0-97.0); Mean Platelet Volume 10.5 FL (9.5-12.2); Monocytes # (A) 0.57 X 10*3/uL (0.20-1.00); Monocytes % (A) 9.3 %; NRBC Per 100 WBC 0 X 10*3/uL (0.00-0.01); Neutrophils # (A) 3.02 X 10*3/uL (1.80-7.70); Neutrophils % (A) 49.1 %; Platelet Count 356 X 10*3/uL (140-440); RBC 4.59 X 10*6/uL (4.10-5.20); RDW 15.2 % (11.5-14.5); WBC 6.15 X 10*3/uL (4.50-10.00)
[2023-11-10 03:04] LABS: ALT 12 U/L (8-44); AST 16 U/L (13-35); Albumin 4.8 g/dL (3.8-4.9); Albumin/Globulin Ratio 1.78 Ratio (1.60-3.17); Alkaline Phosphatase 74 U/L (41-126); BUN/Creat Ratio 24.86 Ratio (12.00-20.00); Blood Urea Nitrogen 17.4 mg/dL (9.0-27.0); Calcium 10.1 mg/dL (8.7-10.3); Carbon Dioxide 25.6 mmol/L (21.6-31.8); Chloride 104 mmol/L (96-109); Globulin 2.7 g/dL (1.6-3.3); Glucose 78 mg/dL (70-110); Potassium 4.4 mmol/L (3.5-5.5); Sodium 142 mmol/L (135-145); Total Bilirubin 0.4 mg/dL (0.3-1.2); Total Protein 7.5 g/dL (6.2-8.2)
== END | disposition home or self-care (01) ==
LOC: LABMAIN 17:44
PROVIDERS: ATTEND Surgery Plastic and Reconstructive Surgery
DX: Z01.812 Encounter for preprocedural laboratory examination (principal)
CPT/HCPCS: 80053; 85025; 86850; 86900; 86901

== ENCOUNTER → 2023-11-18 | Outpatient (CLI) | payer OTHER ==
[2023-11-18 10:39] VITALS: BP 129/86; PULSE 75; TEMP 98.4; BMI 29.8
== END ==
LOC: BARWHC3 09:11
PROVIDERS: ATTEND Surgery Plastic and Reconstructive Surgery
DX: E66.01 Morbid (severe) obesity due to excess calories (principal); Z68.29 Body mass index [BMI] 29.0-29.9, adult; Z91.09 Other allergy status, other than to drugs and biological substances; Z88.0 Allergy status to penicillin; Z88.8 Allergy status to other drugs, medicaments and biological substances; Z87.891 Personal history of nicotine dependence
CPT/HCPCS: 99211